=== PATIENT | female | born 1970 | race Hispanic/Latino ===

== ENCOUNTER → 2017-08-07 | Outpatient (CLI) | payer OTHER ==
[~2017-08-07] MED LIST: GLYB5 PO; LIRA0.6P SQ; LISI10TA7 PO; METF10004 PO
== END | disposition home or self-care (01) ==
LOC: OIH 15:06
PROVIDERS: ATTEND Internal Medicine Nephrology
DX: Z13.6 Encounter for screening for cardiovascular disorders (principal)
CPT/HCPCS: 75571

== ENCOUNTER 2018-08-24 16:12 | Inpatient (IN) | payer OTHER ==
[~2018-08-24] VITALS: Ht 157.5 cm; Wt 96.5 kg
[~2018-08-24 16:12] MED LIST changes: +METF-446 PO; -METF10004 PO
[2018-08-24 17:09] LABS: BASOPHILS % (AUTO) 0.6 % (0.0-5.0); EOSINOPHILS % (AUTO) 1.7 % (0.0-8.0); HEMATOCRIT 27.2 % (36-48); LYMPHOCYTES % (AUTO) 14.6 % (21.0-51.0); MEAN CORPUSCULAR HEMOGLOBIN 17.7 pg (27.0-33.0); MEAN CORPUSCULAR HGB CONC 29.6 g/dL (32.0-36.0); MEAN CORPUSCULAR VOLUME 59.7 fL (79-99); MONOCYTES % (AUTO) 7.1 % (3.0-13.0); PLATELET COUNT (AUTO) 300 K/uL (130-400); RED BLOOD CELL COUNT(AUTO) 4.55 MIL/uL (4.00-5.50); RED CELL DISTRIBUTION WIDTH 17.8 % (11.0-15.5); WHITE BLOOD COUNT (AUTO) 9.8 K/uL (4.8-10.8)
[2018-08-24 17:26] LABS: CARBON DIOXIDE 26 mmol/L (21-32); CHLORIDE 99 mmol/L (101-111); CREATININE 0.7 mg/dL (0.5-1.5); GLOMERULAR FILTR. RATE CALC 95 mL/min (>60); GLUCOSE,RANDOM 389 mg/dL (70-105); POTASSIUM 3.9 mmol/L (3.5-5.1); SODIUM SERUM 134 mmol/L (136-145); UREA NITROGEN, BLOOD 11 mg/dL (7-18)
[2018-08-24 17:28] LABS: INR 0.93 (0.85-1.15); PARTIAL THROMBOPLASTIN TIME 24.3 SEC (26.3-35.5); PROTHROMBIN TIME 9.8 SEC (9.6-11.6)
[2018-08-24 17:39] LABS: ALANINE AMINOTRANSFERASE 24 U/L (12-78); ALBUMIN 3.2 g/dL (3.5-5.0); ASPARTATE AMINOTRANSFERASE 18 U/L (10-37); BILIRUBIN,TOTAL 0.2 mg/dL (0.2-1.0); CREATINE KINASE, TOTAL 100 U/L (21-232); MYOGLOBIN 27 ng/mL (10-92); TOTAL PROTEIN, SERUM 7.6 g/dL (6.0-8.3); TROPONIN I < 0.04 ng/mL (0.00-0.06)
[2018-08-24 17:42] LABS: APPEARANCE,URINE Clear (CLEAR); BILIRUBIN,URINE Negative (NEGATIVE); COLOR,URINE Yellow (YELLOW); GLUCOSE, URINE (UA) >=1000 mg/dL (NEGATIVE); KETONES,URINE Negative (NEGATIVE); LEUKOCYTE ESTERASE ,URINE Negative (NEGATIVE); NITRATE,URINE Positive (NEGATIVE); OCCULT BLOOD,URINE Negative (NEGATIVE); PH,URINE 5.5 (5.0-8.0); PROTEIN,URINE Negative (NEGATIVE)
[2018-08-24 18:43] LABS: RBC,URINE 0-1 /HPF (0-1)
[2018-08-24 18:44] LABS: BACTERIA,URINE Moderate /HPF (None Seen); SQUAMOUS EPITHELIAL CELL,UR Rare /HPF (0-2); YEAST,URINE BUDDING Rare /HPF (None Seen)
[2018-08-24] MEDS: SODIUM CHLORIDE 0.9% 1000ML 1,000 ML IV SCH (19:00)
[2018-08-24] MEDS ORDERED: ACETAMINOPHEN 325 MG TAB PO PRN ×2 (19:00)
[2018-08-24 19:20] VITALS: BP 145/69
[2018-08-24] MEDS: CEFTRIAXONE SODIUM 1 GM IVP SCH (19:30)
[2018-08-24] MEDS ORDERED: GLUCAGON 1MG KIT 1 MG ML IM PRN (21:00)
[2018-08-24] MEDS ORDERED: INSULIN GLARGINE 100 UNITS/ML 10 ML VIAL SQ SCH (21:00)
[2018-08-24] MEDS ORDERED: DEXTROSE 50%-WATER 50 ML DISP.SYRIN IV PRN (21:00)
[2018-08-24] MEDS: INSULIN HUMULIN R 100 UNIT/ML 3ML SQ SCH (21:24)
[2018-08-24] MEDS ORDERED: LIDOCAINE HCL-MPF 1% 2ML VIAL IVP PRN (22:00)
[2018-08-24] MEDS ORDERED: POTASSIUM CHLORIDE 20MEQ/100ML 100 ML IV PRN (22:00)
[2018-08-24] MEDS ORDERED: POTASSIUM CHLORIDE 10% ELIXIR 20 MEQ/15 ML UDCUP PO PRN (22:00)
[2018-08-25] VITALS (24 sets, daily range): BP systolic 97–145; BP diastolic 54–77
[2018-08-25] MEDS: INSULIN HUMULIN R 100 UNIT/ML 3ML SQ SCH ×3 (06:23→21:07)
[2018-08-25 06:27] LABS: BASOPHILS % (AUTO) 0.6 % (0.0-5.0); EOSINOPHILS % (AUTO) 1.8 % (0.0-8.0); HEMATOCRIT 25.3 % (36-48); LYMPHOCYTES % (AUTO) 18.1 % (21.0-51.0); MEAN CORPUSCULAR HEMOGLOBIN 17.8 pg (27.0-33.0); MEAN CORPUSCULAR HGB CONC 29.9 g/dL (32.0-36.0); MEAN CORPUSCULAR VOLUME 59.5 fL (79-99); MONOCYTES % (AUTO) 9.3 % (3.0-13.0); NEUTROPHILS % (AUTO) 70.2 % (40.0-77.0); PLATELET COUNT (AUTO) 278 K/uL (130-400); RED BLOOD CELL COUNT(AUTO) 4.24 MIL/uL (4.00-5.50); RED CELL DISTRIBUTION WIDTH 17.9 % (11.0-15.5); WHITE BLOOD COUNT (AUTO) 8.4 K/uL (4.8-10.8)
[2018-08-25 06:39] LABS: ALBUMIN 2.8 g/dL (3.5-5.0); BILIRUBIN,TOTAL 0.2 mg/dL (0.2-1.0); CREATININE 0.6 mg/dL (0.5-1.5); POTASSIUM 4.1 mmol/L (3.5-5.1); TOTAL PROTEIN, SERUM 6.7 g/dL (6.0-8.3)
[2018-08-25] MEDS ORDERED: PNEUMOCOCCAL VACCINE POLYVALENT 0.5 ML/VIAL [PPV] IM ONE (09:00)
[2018-08-25] MEDS: LISINOPRIL 10 MG TABLET PO SCH (09:31)
[2018-08-25] MEDS: FERROUS SULFATE 325 MG TABLET.DR PO SCH ×2 (09:32→21:09)
[2018-08-25] MEDS: PANTOPRAZOLE SODIUM 40 MG TABLET.DR PO SCH (09:32)
--- NOTE | 2018-08-25 14:10 | NUR ---
DR. GALINA WILHELM, REMOVED 3 SMALL PIECES OF THORN TO LEFT FOOT PLANTAR. NEW ORDERS FOR I&D TODAY GIVEN TO KIKE MENDEZ BY DR. MOJICA. PATIENT NPO SINCE 1000. WILL CONTINUE TO MONITOR PATIENT.
[2018-08-25] MEDS ORDERED: LIDOCAINE HCL 1% 20 ML VIAL ONE (15:31)
[2018-08-25] MEDS ORDERED: BUPIVACAINE/PF 0.5% 30ML VIAL ONE (15:31)
--- NOTE | 2018-08-25 15:45 | NUR ---
PATIENT TRANSFERRED TO [facility] AT THIS TIME.
--- NOTE | 2018-08-25 16:00 | NUR ---
cm note pt resides athome with spouse, independent with adls/ambulation. no dme. pt currently out for procedure. will followup for any postop dc needs. Addendum: 08/25/18 at 1932 by BULMARO GAONA CM Amended: Links added.
[2018-08-25] MEDS ORDERED: MIDAZOLAM HCL 1 MG/ML 2ML VIAL ONE (16:30)
[2018-08-25] MEDS ORDERED: PROPOFOL 10 MG/ML 20ML VIAL IV ONE (16:30)
[2018-08-25] MEDS ORDERED: LIDOCAINE PF 2% 5ML ABBOJECT ONE (16:30)
[2018-08-25] MEDS ORDERED: ONDANSETRON HCL 4 MG/2 ML VIAL ONE (16:30)
[2018-08-25] MEDS ORDERED: DEXAMETHASONE SOD PHOSPHATE 10MG/ML 1ML VIAL ONE (16:30)
[2018-08-25] MEDS ORDERED: FENTANYL CITRATE PF 50 MCG/1 ML 2ML VIAL ONE (16:30)
[2018-08-25] MEDS ORDERED: KETAMINE 50MG/ML SYRINGE 50 MG/ML DISP.SYRIN IV ONE (16:34)
--- NOTE | 2018-08-25 18:25 | NUR ---
REPORT RECEIVED FROM KIKE WHITLOCK (PACU). PATIENT S/P I&D TO LEFT FOOT BY DR. MOJICA UNDER LIGHT SEDATION. 1/2" IODOFORM PACKING WITH 1/8" CARLITOS IN PLACE, INCISION COVERED WITH ADAPTIC, 4X4 GAUZE, ABD PADS, WRAPPED WITH BARRY WRAP. DO NOT REMOVE DRESSING, APPLY PRESSURE DRESS IF INCISION BLEEDS THROUGH. NON-WEIGTH BEARING TO LEFT FOOT, PT TO EVAL PATIENT FOR HOME CRUTCHES OR WALKER. VS: [id number], 96% RA. PATIENT AWAKE AND ALERT. DRESSING TO LEFT FOOT DRY AND INTACT, FOOT ELEVATED ON PILLOW. PATIENT STABLE WITH NO COMPLAINTS OF PAIN OR DISCOMFORT AT THIS TIME.
[2018-08-25] MEDS ORDERED: MORPHINE SULFATE 2 MG/ML 1ML SYG IVP PRN (19:00)
[2018-08-25] MEDS ORDERED: HYDROMORPHONE 1 MG/1 ML AMP IVP PRN (19:00)
[2018-08-25] MEDS: INSULIN GLARGINE 100 UNITS/ML 10 ML VIAL SQ SCH (20:48)
[2018-08-25] MEDS: CEFTRIAXONE SODIUM 1 GM IVP SCH (21:08)
[2018-08-25] MEDS: HYDROCODONE/ACETAMINOPHEN 5/325 MG TAB PO PRN (21:59)
[2018-08-26] VITALS (7 sets, daily range): BP systolic 123–157; BP diastolic 65–81
[2018-08-26] MEDS: SODIUM CHLORIDE 0.9% 1000ML 1,000 ML IV SCH ×2 (01:41→12:12)
--- NOTE | 2018-08-26 02:00 | NUR ---
NURSING ROUNDS PATIENT ASLEEP AT THIS TIME. OBSERVED RISE AND FALL OF CHEST. IV FLUIDS INFUSING. LEFT LEG ELEVATED. FAMILY MEMBER AT BEDSIDE. BED LOCKED, IN LOWEST POSITION, CALL LIGHT WITHIN REACH.
[2018-08-26 06:09] LABS: BASOPHILS % (AUTO) 0.6 % (0.0-5.0); EOSINOPHILS % (AUTO) 1.2 % (0.0-8.0); HEMATOCRIT 23.9 % (36-48); LYMPHOCYTES % (AUTO) 16.1 % (21.0-51.0); MEAN CORPUSCULAR HEMOGLOBIN 18.1 pg (27.0-33.0); MEAN CORPUSCULAR HGB CONC 30.3 g/dL (32.0-36.0); MEAN CORPUSCULAR VOLUME 59.9 fL (79-99); MONOCYTES % (AUTO) 7.3 % (3.0-13.0); NEUTROPHILS % (AUTO) 74.8 % (40.0-77.0); PLATELET COUNT (AUTO) 273 K/uL (130-400); WHITE BLOOD COUNT (AUTO) 8.6 K/uL (4.8-10.8)
[2018-08-26] MEDS: INSULIN HUMULIN R 100 UNIT/ML 3ML SQ SCH ×4 (06:22→21:13)
[2018-08-26 06:23] LABS: ALBUMIN 2.7 g/dL (3.5-5.0); BILIRUBIN,TOTAL 0.2 mg/dL (0.2-1.0); CREATININE 0.5 mg/dL (0.5-1.5); POTASSIUM 3.5 mmol/L (3.5-5.1); TOTAL PROTEIN, SERUM 6.5 g/dL (6.0-8.3)
[2018-08-26] MEDS: HYDROCODONE/ACETAMINOPHEN 5/325 MG TAB PO PRN ×2 (06:48→19:46)
--- NOTE | 2018-08-26 07:37 | NUR ---
CHASITY TORRES TO BE CONSULTED FOR PATIENT'S ANEMIA PER CHASITY. CHASITY TO ADJUST THE BLOOD SUGAR MEDICATIONS ACCORDING TO THE PATIENT'S BLOOD GLUCOSE NEEDS. GALINA TO DETERMINE DISCHARGE.
[2018-08-26] MEDS: PANTOPRAZOLE SODIUM 40 MG TABLET.DR PO SCH (09:17)
[2018-08-26] MEDS: FERROUS SULFATE 325 MG TABLET.DR PO SCH (09:17)
[2018-08-26] MEDS: LISINOPRIL 10 MG TABLET PO SCH (09:18)
[2018-08-26] MEDS: POTASSIUM CHLORIDE 20 MEQ ERTAB PO PRN ×2 (12:21→16:18)
--- NOTE | 2018-08-26 13:10 | NUR ---
ONCOLOGY CONSULT WAS CALLED TO THE OFFICE OF DR TORRES AND MESSAGE WAS LEFT WITH BELLE CHANDRA.
[2018-08-26] MEDS ORDERED: PNEUMOCOCCAL VACCINE POLYVALENT 0.5 ML/VIAL [PPV] IM ONE (17:30)
[2018-08-26] MEDS ORDERED: COMPOUND IV MISC 1 EACH IVSOLN MISC PRN (19:15)
[2018-08-26] MEDS: CEFTRIAXONE SODIUM 1 GM IVP SCH (19:46)
[2018-08-26] MEDS: INSULIN GLARGINE 100 UNITS/ML 10 ML VIAL SQ SCH (21:14)
[2018-08-27 03:00] VITALS: BP 129/67
[2018-08-27 04:27] LABS: BASOPHILS % (AUTO) 0.7 % (0.0-5.0); EOSINOPHILS % (AUTO) 1.9 % (0.0-8.0); HEMATOCRIT 24.2 % (36-48); LYMPHOCYTES % (AUTO) 20.8 % (21.0-51.0); MEAN CORPUSCULAR HEMOGLOBIN 17.7 pg (27.0-33.0); MEAN CORPUSCULAR HGB CONC 29.6 g/dL (32.0-36.0); MEAN CORPUSCULAR VOLUME 59.9 fL (79-99); MONOCYTES % (AUTO) 8.8 % (3.0-13.0); NEUTROPHILS % (AUTO) 67.8 % (40.0-77.0); PLATELET COUNT (AUTO) 327 K/uL (130-400); RED BLOOD CELL COUNT(AUTO) 4.04 MIL/uL (4.00-5.50); RED CELL DISTRIBUTION WIDTH 18.5 % (11.0-15.5); WHITE BLOOD COUNT (AUTO) 8.9 K/uL (4.8-10.8)
[2018-08-27] MEDS: SODIUM CHLORIDE 0.9% 1000ML 1,000 ML IV SCH (04:34)
[2018-08-27 04:40] LABS: CREATININE 0.5 mg/dL (0.5-1.5); POTASSIUM 3.5 mmol/L (3.5-5.1)
--- NOTE | 2018-08-27 04:49 | NUR ---
As per pt Dr Mack came and change dressing to her foot last night.
[2018-08-27] MEDS: INSULIN HUMULIN R 100 UNIT/ML 3ML SQ SCH ×4 (05:44→21:00)
[2018-08-27] MEDS: POTASSIUM CHLORIDE 20 MEQ ERTAB PO PRN ×2 (06:21→09:31)
--- NOTE | 2018-08-27 06:27 | NUR ---
MD Dr KEVIN COTTER came and rounded .
[2018-08-27 08:00] VITALS: BP 151/79
[2018-08-27] MEDS: LISINOPRIL 10 MG TABLET PO SCH (09:31)
[2018-08-27] MEDS: PANTOPRAZOLE SODIUM 40 MG TABLET.DR PO SCH (09:31)
[2018-08-27] MEDS: IRON SUCROSE COMPLEX 100 MG in SODIUM CHLORIDE 0.9% 50 ML IV SCH (09:32)
[2018-08-27] MEDS: HYDROCODONE/ACETAMINOPHEN 5/325 MG TAB PO PRN ×2 (09:32→21:03)
[2018-08-27 12:00] VITALS: BP 145/85
[2018-08-27 16:00] VITALS: BP 171/85
[2018-08-27 19:23] VITALS: BP 171/87
[2018-08-27] MEDS: CEFTRIAXONE SODIUM 1 GM IVP SCH (20:51)
[2018-08-27] MEDS: INSULIN GLARGINE 100 UNITS/ML 10 ML VIAL SQ SCH (21:01)
[2018-08-27 23:20] VITALS: BP 121/65
[2018-08-28 03:00] VITALS: BP 125/74
[2018-08-28 05:06] LABS: BASOPHILS % (AUTO) 0.7 % (0.0-5.0); EOSINOPHILS % (AUTO) 3.2 % (0.0-8.0); HEMATOCRIT 25.5 % (36-48); LYMPHOCYTES % (AUTO) 19.8 % (21.0-51.0); MEAN CORPUSCULAR HEMOGLOBIN 17.9 pg (27.0-33.0); MEAN CORPUSCULAR HGB CONC 29.8 g/dL (32.0-36.0); MEAN CORPUSCULAR VOLUME 60.1 fL (79-99); MONOCYTES % (AUTO) 8.5 % (3.0-13.0); NEUTROPHILS % (AUTO) 67.8 % (40.0-77.0); NUCLEATED RED BLOOD CELLS 0.1 % (0.0-0.19); PLATELET COUNT (AUTO) 309 K/uL (130-400); RED BLOOD CELL COUNT(AUTO) 4.25 MIL/uL (4.00-5.50); RED CELL DISTRIBUTION WIDTH 18.4 % (11.0-15.5); WHITE BLOOD COUNT (AUTO) 7.7 K/uL (4.8-10.8)
[2018-08-28 05:34] LABS: CREATININE 0.6 mg/dL (0.5-1.5); POTASSIUM 3.8 mmol/L (3.5-5.1)
[2018-08-28] MEDS: INSULIN HUMULIN R 100 UNIT/ML 3ML SQ SCH ×4 (06:33→20:58)
[2018-08-28 07:00] VITALS: BP 132/80
[2018-08-28] MEDS: PANTOPRAZOLE SODIUM 40 MG TABLET.DR PO SCH (08:39)
[2018-08-28] MEDS: LISINOPRIL 10 MG TABLET PO SCH (08:40)
[2018-08-28] MEDS: IRON SUCROSE COMPLEX 100 MG in SODIUM CHLORIDE 0.9% 50 ML IV SCH (08:40)
[2018-08-28 11:00] VITALS: BP 150/75
[2018-08-28 16:00] VITALS: BP 139/68
[2018-08-28 20:00] VITALS: BP 141/74
[2018-08-28] MEDS: CEFTRIAXONE SODIUM 1 GM IVP SCH (20:08)
[2018-08-28] MEDS ORDERED: INSULIN GLARGINE 100 UNITS/ML 10 ML VIAL SQ SCH (21:00)
--- NOTE | 2018-08-28 22:45 | NUR ---
DISCHARGE NOTE: Dr. Ratliff was called around 2157 for discharge order , since pt has already a discharge instruction from Dr. Mack. Patient was ordered to call Dr. Ratliff's office at 8am , tomorrow (08/29/18) for meds and insulin to take and appointment schedule. 2240: Reviewed discharge instructions with patient and niece. Patient verbalized understanding. Patient discharged via wheelchair with discharge instructions. IV site terminated with cath intact. Pt. left hospital with niece to home. Distress / discomfort not noted.
== END 2018-08-28 22:40 | disposition home or self-care (01) | DRG 580 ==
LOC: EDH 16:12 → EDHIP 16:13 → 3CH 20:05
PROVIDERS: ADMIT Internal Medicine Nephrology; ATTEND Internal Medicine Nephrology
PROC: 0KBW0ZZ Excision of Left Foot Muscle, Open Approach (ICD-10-PCS; principal; 2018-08-25 16:28)
PROC: 3E0234Z Introduction of Serum, Toxoid and Vaccine into Muscle, Percutaneous Approach (ICD-10-PCS; 2018-08-26)
DX: S91.332A Puncture wound without foreign body, left foot, initial encounter (principal); L03.116 Cellulitis of left lower limb; N39.0 Urinary tract infection, site not specified; D64.9 Anemia, unspecified; E11.65 Type 2 diabetes mellitus with hyperglycemia; E11.621 Type 2 diabetes mellitus with foot ulcer; D50.9 Iron deficiency anemia, unspecified; E66.9 Obesity, unspecified; E78.5 Hyperlipidemia, unspecified; L97.529 Non-pressure chronic ulcer of other part of left foot with unspecified severity; I10 Essential (primary) hypertension; M60.9 Myositis, unspecified; Z68.38 Body mass index [BMI] 38.0-38.9, adult; Z82.49 Family history of ischemic heart disease and other diseases of the circulatory system; Y93.89 Activity, other specified; Y92.89 Other specified places as the place of occurrence of the external cause; Y99.8 Other external cause status; Z23 Encounter for immunization
CPT/HCPCS: 36415; 71045; 73620; 73718; 80048; 80053; 81001; 82550; 82948; 83605; 83874; 83883; 84156; 84484; 85025; 85610; 85730; 86334; 87040; 87070; 87076; 87077; 87088; 87186; 87205; 90732; 93005; 97039; A4218; A6266; G0009; G0378; J0696; J1100; J1756; J1815; J2001; J2250; J2405; J2704; J3010; J3490; J7030

== ENCOUNTER 2022-05-30 14:30 | Emergency (ER) | payer BC, SELFPAY ==
[~2022-05-30] VITALS: Ht 157.5 cm; Wt 91.2 kg
[~2022-05-30 14:30] MED LIST changes: -GLYB5 PO; +GLYB5TAB9 PO; -LIRA0.6P SQ; +LISI10TA24 PO; -LISI10TA7 PO
[2022-05-30] MEDS ORDERED: BACITRACIN 28.4 GM OINT TP ONE (16:30)
[2022-05-30 16:37] LABS: BASOPHILS % (AUTO) 0.8 % (0.0-5.0); EOSINOPHILS % (AUTO) 2.4 % (0.0-8.0); HEMATOCRIT 39.7 % (36-48); LYMPHOCYTES % (AUTO) 27.5 % (21.0-51.0); MEAN CORPUSCULAR HEMOGLOBIN 26.6 pg (27.0-33.0); MEAN CORPUSCULAR VOLUME 80.7 fL (79-99); MONOCYTES % (AUTO) 6.6 % (3.0-13.0); NEUTROPHILS % (AUTO) 62.4 % (40.0-77.0); PLATELET COUNT (AUTO) 294 K/uL (130-400); RED BLOOD CELL COUNT(AUTO) 4.92 MIL/uL (4.00-5.50); RED CELL DISTRIBUTION WIDTH 12.8 % (11.0-15.5); WHITE BLOOD COUNT (AUTO) 8.6 K/uL (4.8-10.8)
[2022-05-30 16:41] LABS: APPEARANCE,URINE CLEAR (CLEAR); BILIRUBIN,URINE NEGATIVE (NEGATIVE); COLOR,URINE COLORLESS (YELLOW); GLUCOSE, URINE (UA) >=1000 mg/dL (NEGATIVE); KETONES,URINE NEGATIVE (NEGATIVE); LEUKOCYTE ESTERASE ,URINE NEGATIVE Leu/uL (NEGATIVE); NITRATE,URINE NEGATIVE (NEGATIVE); OCCULT BLOOD,URINE NEGATIVE (NEGATIVE); PROTEIN,URINE NEGATIVE (NEGATIVE); UROBILINOGEN,URINE 0.2 mg/dL (0.2-1.0)
[2022-05-30 16:42] LABS: MUCUS,URINE RARE LPF (None Seen); SQUAMOUS EPITHELIAL CELL,UR RARE /HPF (0-2); WBC,URINE 0-1 /HPF (0-1)
[2022-05-30 16:45] LABS: CREATININE 0.8 mg/dL (0.5-1.5); POTASSIUM 3.6 mmol/L (3.5-5.1)
[2022-05-30 16:49] LABS: TOTAL PROTEIN, SERUM 7.9 g/dL (6.0-8.3)
[2022-05-30] MEDS ORDERED: BACI30OI6 TP (16:57)
[2022-05-30] MEDS ORDERED: CLIN-141 PO (16:57)
[2022-05-30 17:36] VITALS: BP 152/91
[2022-05-30] MEDS ORDERED: BACITRACIN 1 EACH PACKET TP ONE (17:42)
== END 2022-05-30 17:45 | disposition home or self-care (01) ==
LOC: EDH 14:30
DX: S91.102A Unspecified open wound of left great toe without damage to nail, initial encounter (principal); E11.40 Type 2 diabetes mellitus with diabetic neuropathy, unspecified; I10 Essential (primary) hypertension; X58.XXXA Exposure to other specified factors, initial encounter; Y93.89 Activity, other specified; Y92.89 Other specified places as the place of occurrence of the external cause; Y99.8 Other external cause status
CPT/HCPCS: 36415; 73660; 80053; 81001; 85025